=== PATIENT | male | born 1990 | race Caucasian/White ===

== ENCOUNTER 2024-02-18 14:28 | Emergency (ER) | payer OTHER, SELFPAY ==
[2024-02-18 14:58] LABS: % Eosinophils 1.6 % (0-6); % Immature Granulocytes 0.2 % (0-0.5); % Monocytes 8.8 % (1.7-9.3); % Neutrophils 53.4 % (42.2-75.2); Absolute Basophils 0.1 10^3/uL (0-0.2); Absolute Eosinophils 0.2 10^3/uL (0-0.7); Absolute Lymphocytes 3.2 10^3/uL (1.2-3.4); Absolute Monocytes 0.8 10^3/uL (0.1-0.6); Absolute Neutrophils 4.9 10^3/uL (1.4-6.5); Hematocrit 45.1 % (39.0-52.0); Hemoglobin 15.7 g/dL (13.0-18.0); Mean Corp Hgb Conc. 34.8 g/dL (33.0-37.0); Mean Corpuscular Hgb 29.1 pg (27.0-31.0); Mean Corpuscular Volume 83.7 fL (80.0-94.0); Mean Platelet Volume 10.2 fL (7.4-10.4); Nucleated Red Blood Cells % 0 % (-); Platelet Count 234 10^3/uL (130-400); Red Blood Cell Count 5.39 10^6/uL (4.70-6.10); Red Cell Dist. Width 12.2 % (11.5-14.5); White Blood Cell Count 9.2 10^3/uL (4.8-10.8)
[2024-02-18 15:11] LABS: ALT (SGPT) 19 U/L (0-50); AST (SGOT) 22 U/L (17-59); Albumin 5.1 g/dl (3.5-5.0); Alkaline Phosphatase 67 U/L (38-126); Blood Urea Nitrogen 16 mg/dl (9-20); Calcium 10.1 mg/dl (8.4-10.2); Carbon Dioxide 27 mmol/L (22-30); Chloride 104 mmol/L (98-107); Glucose 77 mg/dl (70-99); Potassium 3.9 mmol/L (3.5-5.1); Sodium 143 mmol/L (135-145); Total Bilirubin 0.8 mg/dl (0.2-1.3); Total Protein 7.9 g/dl (6.3-8.2); eGFR > 60.00
[2024-02-18 15:22] LABS: Troponin I < 0.012 ng/ml
--- NOTE | 2024-02-18 16:24 | ED.GENMED ---
History of Present Illness
<Justine Pham MD, Resident - Last Filed: 02/18/24 17:52>
General
Chief Complaint: Chest Pain
Time Seen by Provider: 02/18/24 16:12
History of Present Illness
History of Present Illness:
33-year-old male smoker with no significant past medical history other than depression presenting to the ED with chest pain. Patient notes his chest pain started 4 days ago, is in the midsternal region, not sharp, does not radiate. Denies pain at
rest, notes pain only when taking deep breath and bending his shoulders forward. Denies fever, cough, palpitations, shortness of breath, nausea or vomiting. Denies sick contacts. Patient notes night sweats. Has not taken any pain medications for
pain.
Past History
<Justine Pham MD, Resident - Last Filed: 02/18/24 17:52>
Past History
ED Past Medical History: Psychiatric (Depression)
ED Past Surgical History: Appendectomy
Social History
Tobacco: Smoker (Smoking since he was 13 years old)
Family History
Family History: CAD (Father had bypass at age 50)
<Kye Estrella MD - Last Filed: 02/18/24 18:15>
Past History
ED Past Medical History: Hypercholesterolemia
Review of Systems
<Justine Pham MD, Resident - Last Filed: 02/18/24 17:52>
Review of Systems
Constitutional: Reports night sweats
EENT: Reports no symptoms
Respiratory: Reports no symptoms
Cardiac: Reports chest pain
ABD/GI: Reports no symptoms
: Reports no symptoms
Musculoskeletal: Reports no symptoms
Skin: Reports no symptoms
Neurological: Reports no symptoms
Endocrine: Reports no symptoms
Hematologic/Lymphatic: Reports no symptoms
Psychiatric: Reports no symptoms
Phy Exam
<Justine Pham MD, Resident - Last Filed: 02/18/24 17:52>
Physical Exam
Physical Exam:
GENERAL: Alert, in no apparent distress
EYE: pupils equal and reactive
NECK: Supple, no significant adenopathy.
ENT: o/p clr, mmm.
CARDIAC: Regular rate and rhythm.
LUNGS: Clear breath sounds bilaterally, no acute respiratory distress, no wheezes/rales/rhonchi
ABDOMEN: Soft, without focal tenderness, no r/g, no cvat
NEUROLOGICAL: Alert and oriented, no focal neuro deficits
SKIN: Warm and dry, skin intact.
MUSCULOSKELETAL: No edema, well perfused.
PSYCH: Normal and appropriate interaction.
Scores
<Justine Pham MD, Resident - Last Filed: 02/18/24 17:52>
Heart Score for Chest Pain Patients
STEMI patient?: No
History: Slightly or Non-Suspicious
ECG: Normal
Age: </= 45 years
Risk Factors: 1 or 2 Risk Factors
Troponin: </= Normal Limit
Heart Score for Chest Pain Patients: 1
Heart Score Risk: 2.5% MACE over next 6 weeks
<Kye Estrella MD - Last Filed: 02/18/24 18:15>
Heart Score for Chest Pain Patients
Heart Score for Chest Pain Patients: 1
Heart Score Risk: 2.5% MACE over next 6 weeks
Course
<Justine Pham MD, Resident - Last Filed: 02/18/24 17:52>
Orders/Labs/Results
Orders:
Orders
02/18/24 14:29
Electrocardiogram (*1) Urgent
Reason for Study: Chest Pain
EKG- Treatment ONCE
02/18/24 14:46
Complete Blood Count/With Diff Urgent
Comprehensive Metabolic Panel Urgent
Troponin I Urgent
02/18/24 16:48
CR Chest - 2 Views Urgent
Comment:
Reason For Exam: chest pain
Abnormal Lab Results
02/18/24
14:46
Absolute Monos (auto) 0.8 H 10^3/uL
(0.1-0.6)
Albumin 5.1 H g/dl
(3.5-5.0)
02/18/24 14:46
02/18/24 14:46
Vital Signs
Initial and Last Documented VS:
Initial Vital Signs
Resp
18
02/18/24 14:37
Last Documented Vital Signs
Pulse Resp BP Pulse Ox
78 18 120/88 98
02/18/24 17:54 02/18/24 17:54 02/18/24 17:54 02/18/24 17:54
<Kye Estrella MD - Last Filed: 02/18/24 18:15>
Orders/Labs/Results
Orders:
Orders
02/18/24 14:29
Electrocardiogram (*1) Urgent
Reason for Study: Chest Pain
EKG- Treatment ONCE
02/18/24 14:46
Complete Blood Count/With Diff Urgent
Comprehensive Metabolic Panel Urgent
Troponin I Urgent
02/18/24 16:48
CR Chest - 2 Views Urgent
Comment:
Reason For Exam: chest pain
Abnormal Lab Results
02/18/24
14:46
Absolute Monos (auto) 0.8 H 10^3/uL
(0.1-0.6)
Albumin 5.1 H g/dl
(3.5-5.0)
02/18/24 14:46
02/18/24 14:46
Vital Signs
Initial and Last Documented VS:
Initial Vital Signs
Resp
18
02/18/24 14:37
Last Documented Vital Signs
Pulse Resp BP Pulse Ox
78 18 120/88 98
02/18/24 17:54 02/18/24 17:54 02/18/24 17:54 02/18/24 17:54
<Justine Pham MD, Resident - Last Filed: 02/18/24 17:52>
MDM/Problems Addressed
Differential Diagnosis Includes:
ACS
Pneumonia
Musculoskeletal pain
Aortic dissection
MDM/Problems Addressed:
- EKG
- Troponin
- CBC, CMP
- CXR
<Justine Pham MD, Resident - Last Filed: 02/18/24 17:52>
*Critical Care Note
Total Time (30-74mins, 75-104mins- exclusive of procedures): Not Applicable
ED Attending Note
<Justine Pham MD, Resident - Last Filed: 02/18/24 17:52>
-
Portions of this chart may have been created with voice recognition software.� Occasional wrong word or��sound alike� substitutions may have occurred due to the inherent limitations of voice recognition software.
<Kye Estrella MD - Last Filed: 02/18/24 18:15>
ED Attending Note
Patient seen and examined by attending physician: Yes
I performed a history and physical exam of patient and discussed management with resident, I reviewed resident's note and agree with documented findings and plan of care.: Yes
ED Attending Note:
33-year-old male midsternal chest discomfort continuous for 4 days worse when he stretches his chest or takes a deep breath. No pleuritic pain or back pain. No shortness of breath. Nonexertional. Continuous in nature. No relation to eating.
GENERAL: Alert and oriented in no apparent distress
EYE: Orbits normal.
NECK: Supple
CARDIAC: Regular rate and rhythm without any obvious murmurs.
LUNGS: Clear breath sounds,normal
ABDOMEN: Soft, without focal tenderness or distention
NEUROLOGICAL: Alert and oriented , grossly non-focal
SKIN: Warm and dry, no rash or lesion, no discoloration, skin intact.
MUSCULOSKELETAL: No edema,no deformity.Good color
PSYCH: Normal and appropriate interaction.
EKG normal sinus rhythm no acute changes. Chest x-ray negative. Troponin normal after 4 days of continuous symptoms. Labs are stable.
Impression is a typical nonexertional midsternal chest discomfort worse with breathing continuous for 4 days. Would highly have expected a positive troponin after this prolonged symptoms. However patient does have cardiac risk factors and warrants
cardiac follow-up. Medically stable for discharge
Discharge Plan
Departure
Patient Disposition: Home (Routine Discharge)
Date of Disposition: 02/18/24
Time of Disposition: 17:48
Patient with high blood pressure during this ER visit?: Yes
Discharge Problem:
Chest pain
Instructions: Chest Pain DCA Follow Up, BLOOD PRESSURE
Referrals:
Alicia Lugo PA-C [Family Provider] -
Interventions
Interventions:
*Risk Screen - Suicide Last Done: 02/18/24 16:35
*General Assessment Last Done: 02/18/24 16:35
*Neglect/Abuse Screening Last Done: 02/18/24 16:35
*ED COVID-19 Vaccine History Last Done: 02/18/24 14:40
*Nursing Disposition Last Done: 02/18/24 17:55
ED- Cardiac Assessment Last Done: 02/18/24 16:25
Discharge Date and Time
Discharge Date/Time: 02/18/24 17:55
Print Language: [email or web address]
[2024-02-18 16:36] VITALS: BP 135/86
[2024-02-18 17:36] VITALS: BP 125/85
[2024-02-18 17:54] VITALS: BP 120/88
--- NOTE | 2024-02-19 00:10 | ED.GENMED ---
History of Present Illness
General
Chief Complaint: Chest Pain
Time Seen by Provider: 02/18/24 16:12
Past History
Past History
ED Past Medical History: Hypercholesterolemia and Psychiatric (Depression)
ED Past Surgical History: Appendectomy
Social History
Tobacco: Smoker (Smoking since he was 13 years old)
Family History
Family History: CAD (Father had bypass at age 50)
Course
Orders/Labs/Results
Orders:
Orders
02/18/24 14:29
Electrocardiogram (*1) Urgent
Reason for Study: Chest Pain
EKG- Treatment ONCE
02/18/24 14:46
Complete Blood Count/With Diff Urgent
Comprehensive Metabolic Panel Urgent
Troponin I Urgent
02/18/24 16:48
CR Chest - 2 Views Urgent
Comment:
Reason For Exam: chest pain
Abnormal Lab Results
02/18/24
14:46
Absolute Monos (auto) 0.8 H 10^3/uL
(0.1-0.6)
Albumin 5.1 H g/dl
(3.5-5.0)
02/18/24 14:46
02/18/24 14:46
Vital Signs
Initial and Last Documented VS:
Initial Vital Signs
Resp
18
02/18/24 14:37
Last Documented Vital Signs
Pulse Resp BP Pulse Ox
78 18 120/88 98
02/18/24 17:54 02/18/24 17:54 02/18/24 17:54 02/18/24 17:54
ED Attending Note
-
Portions of this chart may have been created with voice recognition software.� Occasional wrong word or��sound alike� substitutions may have occurred due to the inherent limitations of voice recognition software.
Discharge Plan
Departure
Patient Disposition: Home (Routine Discharge)
Date of Disposition: 02/18/24
Time of Disposition: 17:48
Patient with high blood pressure during this ER visit?: Yes
Discharge Problem:
Chest pain
Instructions: Chest Pain DCA Follow Up, BLOOD PRESSURE
Referrals:
Alicia Lugo PA-C [Family Provider] -
Interventions
Interventions:
*Risk Screen - Suicide Last Done: 02/18/24 16:35
*General Assessment Last Done: 02/18/24 16:35
*Neglect/Abuse Screening Last Done: 02/18/24 16:35
*ED COVID-19 Vaccine History Last Done: 02/18/24 14:40
*Nursing Disposition Last Done: 02/18/24 17:55
ED- Cardiac Assessment Last Done: 02/18/24 16:25
Discharge Date and Time
Discharge Date/Time: 02/18/24 17:55
Print Language: [email or web address]
== END 2024-02-18 17:55 | disposition home or self-care (01) ==
LOC: EMR 14:28
PROVIDERS: EMERGENCY PHYSICIAN Emergency Medicine; FAMILY PHYSICIAN Physician Assistant
DX: R07.89 Other chest pain (principal); E78.00 Pure hypercholesterolemia, unspecified; F17.200 Nicotine dependence, unspecified, uncomplicated; Z90.49 Acquired absence of other specified parts of digestive tract
CPT/HCPCS: 99285; 71046; 80053; 84484; 85025; 93005